=== PATIENT | male | born 1955 | race Caucasian/White ===

== ENCOUNTER → 2017-07-06 | Outpatient (CLI) | payer MEDICARE, OTHER | END | disposition home or self-care (01) | LOC: CFH 06:49 | PROVIDERS: ATTEND Internal Medicine Cardiovascular Disease | DX: I48.0 Paroxysmal atrial fibrillation (principal); I10 Essential (primary) hypertension; E78.5 Hyperlipidemia, unspecified | CPT/HCPCS: 93306 ==

== ENCOUNTER 2020-12-20 16:18 | Emergency (ER) | payer OTHER ==
[~2020-12-20] VITALS: Ht 188 cm; Wt 104.1 kg
--- NOTE | 2020-12-20 16:37 | NUR ---
PATIENT BACK FROM TRIAGE WITH CHIEF C/O RLQ PAIN X3 HOURS, PAIN HAS BEEN INCREASING. PATIENT DENIES VOMITING OR DIARRHEA, DOES REPORT NAUSEA. NADN, VSS, ACCOMPANIED BY SIGNIFICANT OTHER, CALL LIGHT WITHIN REACH.
--- NOTE | 2020-12-20 17:02 | NUR ---
ERMD AT BEDSIDE FOR EVALUATION.
[2020-12-20] MEDS ORDERED: ONDANSETRON 2MG/ML, 2ML ONE (17:10)
[2020-12-20] MEDS ORDERED: HYDROmorphone 1 MG/ML, 1ML INJ ONE (17:10)
--- NOTE | 2020-12-20 17:12 | NUR ---
PATIENT AMBULATED TO BATHROOM WITH STEADY GAIT FOR URINE SAMPLE.
--- NOTE | 2020-12-20 17:24 | NUR ---
20 GAUGE IV STARTED LEFT AC, BLOOD COLLECTED AND LABELLED AT BEDSIDE, PATIENT MEDICATED PER [employer]. URINE COLLECTED AND SENT TO LAB. Addendum: 12/20/20 at 1725 by LOVE IV STARTED RIGHT AC.
[2020-12-20] MEDS ORDERED: SODIUM CHLORIDE FLUSH 10ML SYR IVF ONE (17:30)
[2020-12-20] MEDS ORDERED: HYDROmorphone 1 MG/ML, 1ML INJ IV ONE (17:30)
[2020-12-20] MEDS ORDERED: ONDANSETRON 2MG/ML, 2ML IVPush ONE (17:30)
[2020-12-20 17:39] LABS: BASOPHILS % (AUTO) 0 % (0-1); EOSINOPHILS % (AUTO) 1 % (1-7); LYMPHOCYTES % (AUTO) 9 % (22-44); MEAN CORPUSCULAR HEMOGLOBIN 32.6 pg (27.5-34.5); MEAN CORPUSCULAR HGB CONC 33.6 g/dL (33.2-36.2); MEAN PLATELET VOLUME 8.6 fL (7.4-10.4); MONOCYTES % (AUTO) 5 % (2-9); NEUTROPHILS % (AUTO) 85 % (42-75); PLATELET COUNT 212 x10^3/uL (130-400); RED BLOOD COUNT 4.91 x10^6/uL (4.38-5.82); RED CELL DISTRIBUTION WIDTH 14.5 % (9.4-14.8)
[2020-12-20 17:44] LABS: MICROSCOPIC NOT IND
[2020-12-20 17:51] LABS: ALANINE AMINOTRANSFERASE 42 U/L (12-78); ALBUMIN 4.2 g/dL (3.4-5.0); ANION GAP 8 mmol/L (5-15); CALCIUM 9.5 mg/dL (8.5-10.1); CHLORIDE 105 mmol/L (98-107); CREATININE 1.23 mg/dL (0.7-1.3)
[2020-12-20 17:53] LABS: ALKALINE PHOSPHATASE 63 U/L (45-117); BILIRUBIN,TOTAL 0.6 mg/dL (0.2-1.0)
--- NOTE | 2020-12-20 18:01 | NUR ---
PATIENT TO IMAGING.
[2020-12-20] MEDS ORDERED: OMNIPAQUE 350 MG/ML, 100ML BOTTLE ONE (18:15)
--- NOTE | 2020-12-20 18:16 | NUR ---
PATIENT BACK FROM CT, REPORTS PAIN LEVEL IS DOWN TO A 3/10, VSS, AT BEDSIDE, CALL LIGHT WITHIN REACH. WAITING FOR RESULTS OF CT SCAN.
[2020-12-20 18:21] LABS: MD NO
--- NOTE | 2020-12-20 19:01 | NUR ---
REPORT FROM STEVEN AREVALO
[2020-12-20 19:30] VITALS: BP 124/72
== END 2020-12-20 20:13 | disposition home or self-care (01) ==
LOC: ED 17:53
DX: K52.9 Noninfective gastroenteritis and colitis, unspecified (principal)
CPT/HCPCS: 36415; 74177; 80053; 81003; 83690; 85025; 96374; 96375; 99285; J1170; J2405; Q9967